=== PATIENT | male | born 1950 | race African-American/Black ===

== ENCOUNTER 2019-05-17 04:18 | Emergency (ER) | payer MEDICARE, OTHER ==
[2019-05-17] MEDS ORDERED: Acetaminophen 500 MG TAB ONE (04:44)
[2019-05-17 05:00] LABS: #Lymphocytes 1.4 thou/uL (1.20-3.40); #Monocytes 1.6 thou/uL (0.11-0.59); #Neutrophils 15.7 thou/uL (1.40-6.50); %Basophils 0.1 % (0.0-1.0); %Eosinophils 0.3 % (0.0-10.0); %Lymphocytes 7.3 % (21.0-51.0); %Monocytes 8.4 % (0.0-10.0); %Neutrophils 83.9 % (42.0-75.0); Hemoglobin 10.1 g/dL (14.0-18.0); Mean Corpuscular Hemoglobin 26.5 pg (27.0-31.0); Mean Corpuscular Volume 85.4 fL (78.0-98.0); Mean Platelet Volume 6.3 fL (7.4-10.4); Platelet Count 583 thou/uL (130-400); RBC Distribution Width 14.9 % (11.5-14.5); Red Blood Cell (RBC) Count 3.82 mill/uL (4.70-6.10); White Blood Cell (WBC) Count 18.7 thou/uL (4.8-10.8)
[2019-05-17 05:20] LABS: ALT (SGPT) 44 U/L (8-55); AST (SGOT) 61 U/L (5-34); Albumin 2.7 g/dL (3.4-4.8); Alkaline Phosphatase 327 U/L (40-110); Anion Gap 16 mmol/L (10-20); BUN (Urea Nitrogen) 13 mg/dL (8.4-25.7); Calc. Creatinine Clearance 0 mL/min (70-130); Calcium 8.6 mg/dL (7.8-10.44); Carbon Dioxide 24 mmol/L (23-31); Chloride 97 mmol/L (98-107); Estimated GFR-MDRD Greater than 90; Globulin 5.7 g/dL (2.4-3.5); Glucose 103 mg/dL (83-110); Potassium 3.8 mmol/L (3.5-5.1); Protein, Total 8.4 g/dL (5.8-8.1); Sodium 133 mmol/L (136-145)
[2019-05-17 05:25] LABS: Bacteria/HPF None Seen HPF (None Seen); Bilirubin Negative (Negative); Blood, Urine 1+ (Negative); Clarity Clear (Clear); Glucose, Urine (Dipstick) Normal (Negative); Leukocyte Negative Leu/uL (Negative); Nitrite Negative (Negative); Protein, Urine (Dipstick) 20 mg/dL (Neg-Trace); RBC/HPF 21-50 HPF (0-3); Squamous Epithelial 0-3 HPF (0-3); Urobilinogen 12 mg/dL (Less than 2); WBC/HPF 0-3 HPF (0-3)
[2019-05-17] MEDS ORDERED: Piperacillin/Tazobactam 4.5 GM VIAL ONE (05:41)
[2019-05-17] MEDS ORDERED: Sodium Chloride 0.9% 100 ML ONE (05:41)
--- NOTE | 2019-05-17 07:43 | CT ---
PRELIMINARY REPORT/[facility]/EMERGENCY AFTER HOURS PROCEDURE EXAM: CT Abdomen and Pelvis Without Intravenous Contrast CLINICAL HISTORY: M69 presents to ED by EMS from home for abdominal pain. Reports sharp pain that began 3 hrs ago, woke from sleep. Also reports fever, nausea, and cough, nonproductive. Diagnosed w colon cancer that met to liver, reports he has not started chemo. Pt was recently discharged from hospital, has medipor t and abdomen drain. Zofran and fentanyl given en route. TECHNIQUE: Axial computed tomography images of the abdomen and pelvis without intravenous contrast. CONTRAST: None. COMPARISON: None provided. FINDINGS: LUNG BASES: Small right pleural effusion with passive atelectasis. Small pericardial effusion. LIVER: Multiple solid masses are seen throughout the liver due to metastasis. GALLBLADDER AND BILE DUCTS: Unremarkable. No calcified stone. No ductal dilation. PANCREAS: Unremarkable. SPLEEN: Unremarkable. ADRENAL GLANDS: Unremarkable. KIDNEYS, URETERS, AND BLADDER: Unremarkable. No hydronephrosis or nephrolithiasis. No ureteral or irina dder calculi. STOMACH AND BOWEL: No obstruction. No wall thickening. No CT evidence of colitis or acute diverticuli tis. APPENDIX: No CT evidence for appendicitis. PERITONEUM: No free fluid. No free air. LYMPH NODES: No lymphadenopathy. REPRODUCTIVE: Unremarkable as visualized. VASCULATURE: No aortic aneurysm. ABDOMINAL WALL AND SOFT TISSUES: Unremarkable. BONES: No fracture or suspicious osseous abnormality. MISCELLANEOUS: There is right upper quadrant drain with significant surrounding inflammation. Surroun ding fluid and phlegmonous type formation. IMPRESSION: 1. Right pleural effusion. 2. Pericardial effusion. 3. Hepatic metastases. 4. Large soft tissue conglomerate of mass, phlegmon and fluid in the right upper quadrant with draina ge catheter. ELECTRONICALLY SIGNED BY: Chevy Clements M.D. May 17, 2019 6:11:47 AM ONLINE ACTIVIST This report is intended for review by the ordering physician only, in accordance of law. If you recei ve this report in error, please call [facility] at [phone]. FINAL REPORT EMERGENCY AFTER HOURS CT ABDOMEN AND PELVIS: I agree with the preliminary report provided. There is a large soft tissue mass seen at the level of a coloenteric anastomosis suspicious for local ized recurrence in the right upper quadrant of the abdomen. There is peritoneal nodularity involving the right upper quadrant consistent with carcinomatosis of the abdomen and pelvis. There ar e numerous hepatic masses consistent with metastatic disease. There is a small right pleural effusion with right basilar atelectasis. There is a small pericardial effusion. Other chronic findings as above. Transcribed Date/Time: 05/17/2019 7:49 AM
--- NOTE | 2019-05-17 08:53 | RAD ---
PORTABLE CHEST: HISTORY: Colon cancer with mets to liver, pain, and cough. FINDINGS: Heart size within normal limits. A left-sided MediPort-type catheter is present. The lungs are kerwin r of any infiltrative process. No pulmonary nodules. IMPRESSION: No active intrathoracic disease. POS: [facility]
== END 2019-05-17 14:52 | disposition short-term general hospital (02) ==
LOC: ERS 04:18
DX: C18.9 Malignant neoplasm of colon, unspecified (principal); C78.7 Secondary malignant neoplasm of liver and intrahepatic bile duct; A41.9 Sepsis, unspecified organism; E78.5 Hyperlipidemia, unspecified; I10 Essential (primary) hypertension
CPT/HCPCS: 36415; 71045; 74176; 80053; 81003; 81015; 83605; 85025; 87040; 87076; 87804; 93005; 96365; 96367; J2543; J3370; J3490